=== PATIENT | female | born 1960 | race Caucasian/White ===

== ENCOUNTER 2020-06-25 07:03 | Inpatient (IN) | payer SELFPAY ==
[2020-06-25 07:29] LABS: ABSOLUTE LYMPHOCYTES (AUTO) 0.6 10^3/uL (0.5-4.7); ABSOLUTE MONOCYTES (AUTO) 0.3 10^3/uL (0.1-1.4); ABSOLUTE NEUT (AUTO) 5.9 10^3/uL (1.7-8.2); BASOPHILS % (AUTO) 0.3 % (0-2); EOSINOPHILS % (AUTO) 0.3 % (0-6); HEMATOCRIT 37.9 % (36.0-47.0); HEMOGLOBIN 12.9 g/dL (12.0-15.5); LYMPHOCYTES % (AUTO) 8.4 % (13-45); MEAN CORPUSCULAR HEMOGLOBIN 33.2 pg (27.0-33.4); MEAN CORPUSCULAR HGB CONC 33.9 g/dL (32.0-36.0); MEAN CORPUSCULAR VOLUME 98 fl (80-97); MONOCYTES % (AUTO) 4.1 % (3-13); PLATELET COUNT 120 10^3/uL (150-450); RED BLOOD COUNT 3.88 10^6/uL (3.72-5.28); RED CELL DISTRIBUTION WIDTH 16.4 % (11.5-14.0); SEGMENTED NEUTROPHILS % (AUTO) 86.9 % (42-78); TOTAL CELLS COUNTED % (AUTO) 100 %; WHITE BLOOD COUNT 6.8 10^3/uL (4.0-10.5)
[2020-06-25 07:47] LABS: ALBUMIN 4.2 g/dL (3.5-5.0); ALKALINE PHOSPHATASE 102 U/L (38-126); ANION GAP 12 (5-19); ASPARTATE AMINO TRANSFERASE 85 U/L (14-36); BILIRUBIN,TOTAL 1.3 mg/dL (0.2-1.3); BLOOD UREA NITROGEN 12 mg/dL (7-20); CALCIUM 8.4 mg/dL (8.4-10.2); CARBON DIOXIDE 25 mmol/L (22-30); CHLORIDE 101 mmol/L (98-107); GLUCOSE 168 mg/dL (75-110); POTASSIUM 3.5 mmol/L (3.6-5.0); TOTAL PROTEIN 7.3 g/dL (6.3-8.2)
--- NOTE | 2020-06-25 07:50 | ER Document Report ---
ED General - General Chief Complaint: Probable Seizure Stated Complaint: POSSIBLE SEIZURE Time Seen by Provider: 06/25/20 07:15 - HPI Notes: Chief complaint: Seizure History of present illness: 59-year-old female from [facility] with history of alcoholism who had been admitted to [facility] detox facility yesterday requesting help regarding binge drinking. Patient apparently had 2 brief generalized seizures after presenting an extremely tremulous state. EMS administered Versed 2.5 mg IM and transported her here. She is very sedated at this point and cannot relate any additional history. I have reviewed paperwork sent over from [facility]. They indicate that she has a history of hypertension and is on 10 mg of lisinopril daily and Minipress 1 mg at bedtime. She additionally takes Inderal 10 mg twice daily. She is on multiple medicines for anxiety and depression including Prozac 80 mg daily BuSpar 30 mg twice daily trazodone 50 mg at bedtime and Seroquel 100 mg at bedtime. Patient has a history of old traumatic brain injury. She has a history of PTSD and depression and possibly an eating disorder. - Related Data Allergies/Adverse Reactions: No Known Allergies Allergy (Unverified 06/25/20 07:59) Past Medical History - General Information source: Patient Cannot obtain history due to: Altered mental status - Social History Smoking Status: Unknown if Ever Smoked Family History: Reviewed & Not Pertinent - Past Medical History Cardiac Medical History: Reports: Hx Hypertension Psychiatric Medical History: Reports: Hx Depression, Hx Post Traumatic Stress Disorder Review of Systems - Review of Systems -: Yes ROS unobtainable due to patient's medical condition Physical Exam - Vital signs Vitals: Temp Resp BP Pulse Ox 98.8 F 21 H 134/92 H 93 06/25/20 07:15 06/25/20 07:15 06/25/20 07:15 06/25/20 07:15 - Notes Notes: GENERAL: Slender female of approximately stated age who appears postictal and very sedated from previously administered Versed. SKIN: Good turgor no rashes. HEAD: Normocephalic atraumatic. EYES: PERRLA. EOMI. Conjunctivae and sclerae clear. EARS: CANALS AND TMS CLEAR. NOSE: CLEAR. MOUTH: Moist mucosa. Good dentition. No stridor or edema. No drooling. NECK: Supple. No masses or thyromegaly. No adenopathy. Carotids 2+ without bruits. No JVD. BACK: Symmetrical without tenderness. CHEST: Respirations unlabored. Breath sounds clear and symmetrical. HEART: Regular rhythm. No murmur gallop or rub. ABDOMEN: Soft nontender without masses, organomegaly or rebound. Bowel sounds normally active. No bruits. GENITALIA: Deferred. EXTREMITIES: No edema. No calf tenderness. Cap refill less than 1.5 seconds. Dorsalis pedis and posterior tibial pulses 3+ and symmetrical. NEUROLOGICAL: Patient is very sedated from previously administered Versed. Slurred speech and nonsense syllables. Opens eyes to loud verbal stimuli. Localizes pain. Moves all 4 extremities symmetrically. 1+ ankle clonus bilaterally. Course - Re-evaluation Re-evalutation: 06/25/20 12:08 Patient received multiple doses of Ativan IV. Head CT was negative. She has evidence of a significant UTI on urinalysis. I have ordered some IV Rocephin. She is able to speak with me a little bit more now but remains mildly confused. She still constantly wants to climb out of bed. No further seizure activity since arrival here. Findings have been discussed with on-call hospitalist Dr. Smith who has accepted her for admission to [facility]. - Vital Signs Vital signs: Temp Pulse Resp BP Pulse Ox 98.8 F 21 H 143/98 H 97 06/25/20 07:15 06/25/20 09:54 06/25/20 09:54 06/25/20 09:54 - Laboratory Result Diagrams: 06/25/20 07:07 06/25/20 07:07 Laboratory results interpreted by me: 06/25/20 06/25/20 06/25/20 07:07 07:07 07:07 MCV 98 H RDW 16.4 H Plt Count 120 L Lymph % (Auto) 8.4 L Seg Neutrophils % 86.9 H Potassium 3.5 L Glucose 168 H Magnesium 1.5 L AST 85 H Urine Protein Urine Glucose (UA) Urine Ketones Urine Blood Urine Nitrite Ur Leukocyte Esterase 06/25/20 07:50 MCV RDW Plt Count Lymph % (Auto) Seg Neutrophils % Potassium Glucose Magnesium AST Urine Protein 100 H Urine Glucose (UA) 50 H Urine Ketones TRACE H Urine Blood SMALL H Urine Nitrite POSITIVE H Ur Leukocyte Esterase TRACE H - EKG Interpretation by Me Additional EKG results interpreted by me: 06/25/20 07:53 Twelve-lead EKG from 0711 hrs. reviewed contemporaneously by me demonstrating normal sinus rhythm with a rate of 96. There is prolongation of the QT interval with a QTC of 531 ms. QRS axis is normal at +[address]/T wave changes are present. There is no prior tracing for comparison. Indication for current study: Seizure. Discharge - Discharge Clinical Impression: Chronic alcoholism Alcohol withdrawal seizure Qualifiers: Complication of substance-induced condition: with perceptual disturbance Qualified Code(s): F10.232 - Alcohol dependence with withdrawal with perceptual disturbance Urinary tract infection Qualifiers: Urinary tract infection type: site unspecified Hematuria presence: without hematuria Qualified Code(s): N39.0 - Urinary tract infection, site not specified Condition: Fair Disposition: ADMITTED INPATIENT Admitting Provider: Sarah (Hospitalist) Unit Admitted: [facility]
[2020-06-25 08:07] LABS: ALCOHOL < 10 mg/dL (NONE DETECTED)
[2020-06-25 08:21] LABS: APPEARANCE,URINE CLEAR; BILIRUBIN,URINE NEGATIVE (NEGATIVE); COLOR,URINE YELLOW; GLUCOSE, URINE 50 mg/dL (NEGATIVE); KETONES,URINE TRACE mg/dL (NEGATIVE); LEUKOCYTE ESTERASE,URINE TRACE (NEGATIVE); NITRITE,URINE POSITIVE (NEGATIVE); PROTEIN,URINE 100 mg/dL (NEGATIVE); URINE SPECIFIC GRAVITY 1.011; UROBILINOGEN,URINE NEGATIVE mg/dL (<2.0)
[2020-06-25 08:29] LABS: URINE AMPHETAMINES SCREEN NEGATIVE; URINE BARBITURATES SCREEN NEGATIVE; URINE COCAINE SCREEN NEGATIVE; URINE MARIJUANA (THC) SCREEN NEGATIVE; URINE METHADONE SCREEN NEGATIVE; URINE PHENCYCLIDINE SCREEN NEGATIVE
[2020-06-25 08:31] LABS: URINE BENZODIAZEPINES SCREEN UNCONFIRMED POSITIVE
[2020-06-25] MEDS ORDERED: LORAZEPAM INJ 2 MG/1 ML VIAL IV ONE (08:51)
--- NOTE | 2020-06-25 09:31 | RADIOLOGY REPORT (SQ) ---
EXAM DESCRIPTION: CHEST SINGLE VIEW IMAGES COMPLETED DATE/TIME: 06/25/2020 8:07 am REASON FOR STUDY: ams seizure COMPARISON: None. EXAM PARAMETERS: NUMBER OF VIEWS: One view. TECHNIQUE: Single frontal radiographic view of the chest acquired. RADIATION DOSE: NA LIMITATIONS: None. FINDINGS: LUNGS AND PLEURA: Lungs are hyperinflated. No opacities, masses or pneumothorax. No pleu ral effusion. MEDIASTINUM AND HILAR STRUCTURES: No masses. Contour normal. HEART AND VASCULAR STRUCTURES: Heart normal in size. Normal vasculature. BONES: No acute findings. HARDWARE: None in the chest. OTHER: No other significant finding. IMPRESSION: No acute cardiopulmonary disease. Hyperinflated lungs which can be seen with obstructiv e lung disease. TECHNICAL DOCUMENTATION: JOB ID: [id number] 2010 [employer]- All Rights Reserved Reading location - IP/workstation name: [email or web address]
[2020-06-25] MEDS ORDERED: NORMAL SALINE 1000 ML 1,000 ML with POTASSIUM CHLORIDE 20 MEQ, MAGNESIUM SULFATE 8 MEQ,... IV SCH ×10 (10:00→18:00)
--- NOTE | 2020-06-25 10:15 | RADIOLOGY REPORT (SQ) ---
EXAM DESCRIPTION: CT HEAD WITHOUT IMAGES COMPLETED DATE/TIME: 06/25/2020 8:50 am REASON FOR STUDY: ams seizure. COMPARISON: None. TECHNIQUE: Axial images acquired through the brain without intravenous contrast. Images reviewed wi th bone, brain and subdural windows. Additional sagittal and coronal reconstructions were generated. Images stored on PACS. All CT scanners at this facility use dose modulation, iterative reconstruction, and/or weight based d osing when appropriate to reduce radiation dose to as low as reasonably achievable (ALARA). [facility]: Dose Right [facility]: CareDose [facility]: Dose Right [facility]: Teradose 4D [facility]: Smart [employer] Interactive Video RADIATION DOSE: CT Rad equipment meets quality standard of care and radiation dose reduction techniq ues were employed. CTDIvol: 53.2 mGy. DLP: 964 mGy-cm. mGy. LIMITATIONS: None. FINDINGS: VENTRICLES: Normal size and contour. CEREBRUM: No masses. No hemorrhage. No midline shift. No evidence for acute infarction. Normal gra y/white matter differentiation. No areas of low density in the white matter. CEREBELLUM: No masses. No hemorrhage. No alteration of density. No evidence for acute infarction. EXTRAAXIAL SPACES: No fluid collections. No masses. ORBITS AND GLOBE: No intra- or extraconal masses. Normal contour of globe without masses. CALVARIUM: No fracture. PARANASAL SINUSES: No fluid or mucosal thickening. SOFT TISSUES: No mass or hematoma. OTHER: No other significant finding. IMPRESSION: NORMAL BRAIN CT WITHOUT CONTRAST. EVIDENCE OF ACUTE STROKE: NO. COMMENT: Quality ID # [id number]: Final reports with documentation of one or more dose reduction techniques (e.g., Automated exposure control, adjustment of the mA and/or kV according to patient size, use of iterative reconstruction technique) TECHNICAL DOCUMENTATION: JOB ID: [id number] 2010 [employer]- All Rights Reserved Reading location - IP/workstation name: [email or web address]
--- NOTE | 2020-06-25 10:41 | EKG REPORT ---
SEVERITY:- ABNORMAL ECG - SINUS RHYTHM PROLONGED QT INTERVAL : Confirmed by: Chase Lindsay MD 25-Jun-2020 10:41:05
[2020-06-25] MEDS ORDERED: CEFTRIAXONE INJ 1000 MG VIAL IV ONE (10:59)
[2020-06-25] MEDS ORDERED: LORAZEPAM INJ 2 MG/1 ML VIAL IV PRN ×2 (11:00→13:01)
[2020-06-25] MEDS ORDERED: PROMETHAZINE HCL INJ 25 MG/1 ML VIAL IV PRN (12:57)
[2020-06-25] MEDS ORDERED: ONDANSETRON HCL INJ/PF 4 MG/2 ML SDV IV PRN (12:57)
[2020-06-25] MEDS ORDERED: ALBUTEROL SULFATE 0.083% NEB 2.5 MG/3 ML AMPUL NEB PRN (12:57)
[2020-06-25] MEDS ORDERED: ACETAMINOPHEN 325 MG TABLET PO PRN (12:57)
[2020-06-25] MEDS ORDERED: NORMAL SALINE 1000 ML 1,000 ML with POTASSIUM CHLORIDE 20 MEQ, MAGNESIUM SULFATE 8 MEQ,... IV ONE ×5 (13:02)
[2020-06-25] MEDS ORDERED: METOPROLOL TARTRATE PF/INJ 5 MG/5 ML SDV IV PRN (13:37)
[2020-06-25] MEDS ORDERED: HYDRALAZINE HCL INJ/PF 20 MG/1 ML SDV IV PRN (13:37)
[2020-06-25] MEDS: IPRATROPIUM/ALBUTEROL 0.5-2.5 MG/3 ML AMPUL NEB SCH ×2 (13:59→20:35)
[2020-06-25] MEDS ORDERED: MAGNESIUM SULFATE/D5W 1 GM/100 ML RTUPB IV ONE (14:00)
--- NOTE | 2020-06-25 14:18 | PSYCHOLOGICAL NOTE ---
Psych Note - Psych Note Date seen by psych provider: 06/25/20 Time seen by psych provider: 11:30 Psych Note: Reason for Consult: Detox/Seizure Patient arrived to [facility] ED from [facility] after having a seizure and connection to detoxing from alcohol. Patient reports that she has not drank in 2 days. Patient currently is having some difficulty engaging as she did receive Ativan approximately 2 hours prior. At this time the patient discloses she is not interested in returning to [place] at this time. Patient is semi-alert but is orientated to person place and circumstance. Patient is very groggy and has difficulty focusing but does answer appropriately. Patient denies suicidal and homicidal ideations. Cognitive functioning is currently slowed because of needing Ativan after having a seizure from withdrawal from alcohol. Impression\plan: Patient is cleared from acute psychiatric services. Patient was seen at [facility] specifically for detox from alcohol. Patient denied suicidal and homicidal ideation; she does not meet IVC criteria per [place] GS 122C. Patient currently is disclosing that she is not interested in returning to [place] however patient is having some difficulty engaging due to receiving Ativan. Patient has been medically admitted. If patient would like further resources to continue her path and sobriety please reconsult. Dr. Peña was consulted in the care management of this patient; attending physicians in agreement with recommendations and disposition.
[2020-06-25] MEDS: DIAZEPAM INJ 10 MG/2 ML DISP.SYRIN IV SCH ×2 (14:39→21:53)
[2020-06-25] MEDS: DEXTROSE 5%-NORMAL SALINE 1,000 ML IV PRN (14:49)
--- NOTE | 2020-06-25 15:48 | PDOC H&P ---
History of Present Illness Admission Date/PCP: 06/25/20 12:25 History of Present Illness: DENISE WHITING is a 59 year old female past medical history of TBI, seizure disorder, depression, anxiety, EtOH abuse, binge drinking from [facility], who was transferred to [facility] for alcohol detox, at the center she was noted to have a seizure and was brought to ED. On my encounter patient is a little groggy as she has received benzodiazepines, she is easily arousable and alert and oriented but thinks she is in [place], denies any auditory or visual hallucination or any formication, last alcohol intake was 2 days ago, she dysuria, urgency, denies any fever, chills, nausea, vomiting, diarrhea, constipation. In the ED she was evaluated by Dr. medeiros per psychiatrist and she is cleared from acute psychiatric services. CT head was negative for any acute abnormalities, chest x-ray showed hyperinflation possibly obstructive lung disease, CBC WNL and CMP she was noted to be mildly hypokalemic and hypomagnesemic, urine was positive for leukocyte esterase, and toxicology positive for benzodiazepines. Alcohol less than 10. Hospitalist was consulted for admission. Past Medical History Cardiac Medical History: Reports: Hypertension Psychiatric Medical History: Reports: Depression, Post Traumatic Stress Disorder Social History Smoking Status: Unknown if Ever Smoked Family History Family History: Reviewed & Not Pertinent Parental Family History Reviewed: Yes Children Family History Reviewed: Yes Sibling(s) Family History Reviewed.: Yes Medication/Allergy Home Medications: Buspirone HCl [Buspar 10 mg Tablet] 30 mg PO BID 06/25/20 Fluoxetine HCl [Prozac] 80 mg PO DAILY 06/25/20 Lisinopril [Prinivil 10 mg Tablet] 10 mg PO DAILY 06/25/20 Prazosin HCl [Minipress] 1 mg PO QHS 06/25/20 Propranolol HCl [Inderal 10 mg Tablet] 10 mg PO BID 06/25/20 Quetiapine Fumarate [Seroquel 100 mg Tablet] 100 mg PO QHS 06/25/20 Trazodone HCl [Desyrel 50 mg Tablet] 50 mg PO QHS 06/25/20 Allergies/Adverse Reactions: No Known Allergies Allergy (Unverified 06/25/20 07:59) Review of Systems Review of Systems: as per hpi Physical Exam Vital Signs: Temp Pulse Resp BP Pulse Ox 98.8 F 19 120/87 H 97 06/25/20 07:15 06/25/20 15:15 06/25/20 15:15 06/25/20 15:15 Intake & Output 06/24/20 06/25/20 06/26/20 06:59 06:59 06:59 Output Total 300 Balance -300 Weight 65.771 kg General appearance: PRESENT: no acute distress, well-developed, well-nourished, other - Somnolent Respiratory exam: PRESENT: clear to auscultation zulma. ABSENT: rales, rhonchi, wheezes Cardiovascular exam: PRESENT: RRR. ABSENT: diastolic murmur, rubs, systolic murmur GI/Abdominal exam: PRESENT: normal bowel sounds, soft. ABSENT: distended, guarding, mass, organolmegaly, rebound, tenderness Neurological exam: PRESENT: alert, awake, oriented to person, CN II-XII grossly intact. ABSENT: motor sensory deficit Results Laboratory Results: 06/25/20 07:07 06/25/20 07:07 06/25/20 06/25/20 06/25/20 07:07 07:07 07:07 WBC 6.8 RBC 3.88 Hgb 12.9 Hct 37.9 MCV 98 H MCH 33.2 MCHC 33.9 RDW 16.4 H Plt Count 120 L Seg Neutrophils % 86.9 H Sodium 137.9 Potassium 3.5 L Chloride 101 Carbon Dioxide 25 Anion Gap 12 BUN 12 Creatinine 0.73 Est GFR ( Amer) > 60 Glucose 168 H Calcium 8.4 Magnesium 1.5 L Total Bilirubin 1.3 AST 85 H Alkaline Phosphatase 102 Total Protein 7.3 Albumin 4.2 Urine Color Urine Appearance Urine pH Ur Specific [place] Urine Protein Urine Glucose (UA) Urine Ketones Urine Blood Urine Nitrite Ur Leukocyte Esterase Urine WBC (Auto) Urine RBC (Auto) 06/25/20 06/25/20 07:50 14:16 WBC RBC Hgb Hct MCV MCH MCHC RDW Plt Count Seg Neutrophils % Sodium Potassium Chloride Carbon Dioxide Anion Gap BUN Creatinine Est GFR ( Amer) Glucose Calcium Magnesium 1.9 Total Bilirubin AST Alkaline Phosphatase Total Protein Albumin Urine Color YELLOW Urine Appearance CLEAR Urine pH 6.0 Ur Specific [place] 1.011 Urine Protein 100 H Urine Glucose (UA) 50 H Urine Ketones TRACE H Urine Blood SMALL H Urine Nitrite POSITIVE H Ur Leukocyte Esterase TRACE H Urine WBC (Auto) 9 Urine RBC (Auto) 2 Impressions: Chest X-Ray 06/25/20 07:51 IMPRESSION: No acute cardiopulmonary disease. Hyperinflated lungs which can be seen with obstructive lung disease. Head CT 06/25/20 07:51 IMPRESSION: NORMAL BRAIN CT WITHOUT CONTRAST. EVIDENCE OF ACUTE STROKE: NO. Assessment and Plan - Diagnosis (1) Alcohol withdrawal seizure Qualifiers: Complication of substance-induced condition: with perceptual disturbance Qualified Code(s): F10.232 - Alcohol dependence with withdrawal with perceptual disturbance Is this a current diagnosis for this admission?: Yes Plan: Last alcohol intake 2 days ago. Endorses history of TBI, denies any history of seizure disorder. Admitted to IMCU, telemetry, benzodiazepines, thiamine, folic acid, fall seizure and aspiration precautions, monitor vitals status electrolytes and replete as needed. (2) Hypertension Is this a current diagnosis for this admission?: Yes Plan: Appears euvolemic. Noted to be hypertensive. Resume home meds. Adjust meds as needed. (3) ETOH abuse Is this a current diagnosis for this admission?: Yes Plan: As per #1. (4) Depression Is this a current diagnosis for this admission?: Yes Plan: Denies any suicidal or homicidal ideation. Resume home meds. Outpatient PCP and psychiatry follow-up. (5) Urinary tract infection Qualifiers: Urinary tract infection type: site unspecified Hematuria presence: without hematuria Qualified Code(s): N39.0 - Urinary tract infection, site not specified Is this a current diagnosis for this admission?: Yes Plan: Likely due to gram-negative rods including E. coli. Empiric IV antibiotics. Follow-up urine culture. - Time Time Spent with patient: 35 or more minutes Medications reviewed and adjusted accordingly: Yes Anticipated Discharge Disposition: Psych Hospital/Unit Anticipated Discharge Timeframe: within 72 hours
[2020-06-25] MEDS: BUSPIRONE HCL 10 MG TABLET PO SCH (18:24)
[2020-06-25] MEDS: PROPRANOLOL HCL 10 MG TABLET PO SCH (18:24)
[2020-06-25] MEDS: TRAZODONE HCL 50 MG TABLET PO SCH (21:52)
[2020-06-25] MEDS: TEMAZEPAM 7.5 MG CAPSULE PO SCH (21:52)
[2020-06-25] MEDS: FAMOTIDINE 20 MG TABLET PO SCH (21:53)
[2020-06-25] MEDS ORDERED: QUETIAPINE FUMARATE 100 MG TABLET PO SCH (22:00)
[2020-06-25] MEDS ORDERED: (PENDING PHARMACY ID) (Prazosin Hcl [Minipress] 1 MG) PO SCH (22:00)
[2020-06-26] MEDS: DEXTROSE 5%-NORMAL SALINE 1,000 ML IV PRN ×2 (03:58→17:18)
[2020-06-26] MEDS: DIAZEPAM INJ 10 MG/2 ML DISP.SYRIN IV SCH ×3 (05:59→21:55)
[2020-06-26 06:30] LABS: ABSOLUTE EOSINOPHILS # (AUTO) 0.1 10^3/uL (0.0-0.6); ABSOLUTE LYMPHOCYTES (AUTO) 1.3 10^3/uL (0.5-4.7); ABSOLUTE MONOCYTES (AUTO) 0.4 10^3/uL (0.1-1.4); ABSOLUTE NEUT (AUTO) 4.5 10^3/uL (1.7-8.2); BASOPHILS % (AUTO) 0.4 % (0-2); EOSINOPHILS % (AUTO) 1.5 % (0-6); HEMATOCRIT 39.9 % (36.0-47.0); HEMOGLOBIN 13.7 g/dL (12.0-15.5); LYMPHOCYTES % (AUTO) 20.8 % (13-45); MEAN CORPUSCULAR HEMOGLOBIN 32.9 pg (27.0-33.4); MEAN CORPUSCULAR HGB CONC 34.3 g/dL (32.0-36.0); MEAN CORPUSCULAR VOLUME 96 fl (80-97); MONOCYTES % (AUTO) 6.6 % (3-13); PLATELET COUNT 115 10^3/uL (150-450); RED BLOOD COUNT 4.15 10^6/uL (3.72-5.28); SEGMENTED NEUTROPHILS % (AUTO) 70.7 % (42-78); TOTAL CELLS COUNTED % (AUTO) 100 %; WHITE BLOOD COUNT 6.4 10^3/uL (4.0-10.5)
[2020-06-26 07:31] LABS: ANION GAP 8 (5-19); BLOOD UREA NITROGEN 10 mg/dL (7-20); CALCIUM 8.3 mg/dL (8.4-10.2); CARBON DIOXIDE 24 mmol/L (22-30); CHLORIDE 103 mmol/L (98-107); GLUCOSE 108 mg/dL (75-110); PHOSPHORUS 2.7 mg/dL (2.5-4.5); POTASSIUM 3.1 mmol/L (3.6-5.0)
[2020-06-26] MEDS: IPRATROPIUM/ALBUTEROL 0.5-2.5 MG/3 ML AMPUL NEB SCH ×3 (08:40→20:55)
[2020-06-26] MEDS ORDERED: POTASSIUM CHLORIDE 10 MEQ TABLET.ER PO ONE (09:30)
[2020-06-26] MEDS: FOLIC ACID 1 MG TABLET PO SCH (09:35)
[2020-06-26] MEDS: FAMOTIDINE 20 MG TABLET PO SCH ×2 (09:35→21:55)
[2020-06-26] MEDS: FLUOXETINE HCL 20 MG CAPSULE PO SCH (09:35)
[2020-06-26] MEDS: THIAMINE HCL 100 MG TABLET PO SCH (09:35)
[2020-06-26] MEDS: PROPRANOLOL HCL 10 MG TABLET PO SCH ×2 (09:35→17:18)
[2020-06-26] MEDS: BUSPIRONE HCL 10 MG TABLET PO SCH ×2 (09:36→17:18)
[2020-06-26] MEDS: CEFTRIAXONE 1 GM/D5W RTU 1 GM/50 ML RTUPB IV SCH (09:36)
[2020-06-26] MEDS: LISINOPRIL 10 MG TABLET PO SCH (09:36)
[2020-06-26] MEDS: ENOXAPARIN SODIUM INJ 40 MG/0.4 ML DISP.SYRIN SUBCUT SCH (09:37)
[2020-06-26] MEDS: MULTIVITAMIN (INFANT) W-IRON DROPS 50 ML PO SCH (09:39)
[2020-06-26] MEDS ORDERED: DOCUSATE SODIUM 100 MG/10 ML UDC PO SCH (10:00)
--- NOTE | 2020-06-26 10:10 | PDOC PROGRESS REPORT ---
Subjective Progress Note for:: 06/26/20 Subjective:: DENISE WHITING is a 59 year old female past medical history of TBI, seizure disorder, depression, anxiety, EtOH abuse, binge drinking from [facility], who was transferred to [facility] for alcohol detox, at the center she was noted to have a seizure and was brought to ED. On my encounter patient is a little groggy as she has received benzodiazepines, she is easily arousable and alert and oriented but thinks she is in [place], denies any auditory or visual hallucination or any formication, last alcohol intake was 2 days ago, she dysuria, urgency, denies any fever, chills, nausea, vomiting, diarrhea, constipation. In the ED she was evaluated by Dr. medeiros per psychiatrist and she is cleared from acute psychiatric services. CT head was negative for any acute abnormalities, chest x-ray showed hyperinflation possibly obstructive lung disease, CBC WNL and CMP she was noted to be mildly hypokalemic and hypomagnesemic, urine was positive for leukocyte esterase, and toxicology positive for benzodiazepines. Alcohol less than 10. Hospitalist was consulted for admission. 06/26/2020. No acute events overnight. Patient somnolent but easily arousable, cooperative with physical examination, alert and oriented to person and place, denies any fever, chills, nausea, vomiting. Has not had any seizures since admission. Reason For Visit: SEIZURE,ALCOHOL WITHDRAWAL Physical Exam Vital Signs: Temp Pulse Resp BP Pulse Ox 97.8 F 68 16 104/65 97 06/26/20 07:41 06/26/20 08:40 06/26/20 08:40 06/26/20 07:41 06/26/20 08:40 Intake & Output 06/25/20 06/26/20 06/27/20 06:59 06:59 06:59 Intake Total 2298 Output Total 1075 Balance 1223 Weight 70 kg General appearance: PRESENT: no acute distress, well-developed, well-nourished Head exam: PRESENT: atraumatic, normocephalic Respiratory exam: PRESENT: clear to auscultation zulma. ABSENT: rales, rhonchi, wheezes Cardiovascular exam: PRESENT: RRR. ABSENT: diastolic murmur, rubs, systolic murmur GI/Abdominal exam: PRESENT: normal bowel sounds, soft. ABSENT: distended, guarding, mass, organolmegaly, rebound, tenderness Neurological exam: PRESENT: alert - Sleeping but easily arousable, awake - Sle eping but easily arousable, oriented to person, oriented to time, oriented to situation, CN II-XII grossly intact. ABSENT: motor sensory deficit Results Laboratory Results: 06/26/20 05:53 06/26/20 05:53 06/25/20 06/26/20 06/26/20 14:16 05:53 05:53 WBC 6.4 RBC 4.15 Hgb 13.7 Hct 39.9 MCV 96 MCH 32.9 MCHC 34.3 RDW 16.0 H Plt Count 115 L Seg Neutrophils % 70.7 Sodium 135.4 L Potassium 3.1 L Chloride 103 Carbon Dioxide 24 Anion Gap 8 BUN 10 Creatinine 0.56 Est GFR ( Amer) > 60 Glucose 108 Calcium 8.3 L Phosphorus 2.7 Magnesium 1.9 Impressions: Chest X-Ray 06/25/20 07:51 IMPRESSION: No acute cardiopulmonary disease. Hyperinflated lungs which can be seen with obstructive lung disease. Head CT 06/25/20 07:51 IMPRESSION: NORMAL BRAIN CT WITHOUT CONTRAST. EVIDENCE OF ACUTE STROKE: NO. Assessment and Plan - Diagnosis (1) Alcohol withdrawal seizure Qualifiers: Complication of substance-induced condition: with perceptual disturbance Qualified Code(s): F10.232 - Alcohol dependence with withdrawal with perceptual disturbance Is this a current diagnosis for this admission?: Yes Plan: Last alcohol intake 2 days ago. Endorses history of TBI, denies any history of seizure disorder. Has not had any seizures since admission. Continue telemetry, benzodiazepines, thiamine, folic acid, fall seizure and aspiration precautions, monitor vitals status electrolytes and replete as ne eded. (2) Hypertension Is this a current diagnosis for this admission?: Yes Plan: Appears euvolemic. Noted to be hypertensive. Resume home meds. Adjust meds as needed. (3) ETOH abuse Is this a current diagnosis for this admission?: Yes Plan: As per #1. (4) Depression Is this a current diagnosis for this admission?: Yes Plan: Denies any suicidal or homicidal ideation. Resume home meds. Outpatient PCP and psychiatry follow-up. (5) Urinary tract infection Qualifiers: Urinary tract infection type: site unspecified Hematuria presence: without hematuria Qualified Code(s): N39.0 - Urinary tract infection, site not specified Is this a current diagnosis for this admission?: Yes Plan: Likely due to gram-negative rods including E. coli. Empiric IV antibiotics. Follow-up urine culture. - Time Time Spent with patient: 15-24 minutes Medications reviewed and adjusted accordingly: Yes Anticipated Discharge Disposition: Tertiary Anticipated Discharge Timeframe: within 72 hours
--- NOTE | 2020-06-26 15:01 | EKG REPORT ---
SEVERITY:- ABNORMAL ECG - SINUS RHYTHM PROLONGED QT INTERVAL LA ABNORMALITY : Confirmed by: Chase Lindsay MD 26-Jun-2020 15:00:03
[2020-06-26] MEDS: TRAZODONE HCL 50 MG TABLET PO SCH (21:55)
[2020-06-26] MEDS: TEMAZEPAM 7.5 MG CAPSULE PO SCH (21:55)
[2020-06-27] MEDS: DEXTROSE 5%-NORMAL SALINE 1,000 ML IV PRN (05:42)
[2020-06-27 07:20] LABS: ABSOLUTE EOSINOPHILS # (AUTO) 0.1 10^3/uL (0.0-0.6); ABSOLUTE LYMPHOCYTES (AUTO) 1.7 10^3/uL (0.5-4.7); ABSOLUTE MONOCYTES (AUTO) 0.4 10^3/uL (0.1-1.4); ABSOLUTE NEUT (AUTO) 2.2 10^3/uL (1.7-8.2); BASOPHILS % (AUTO) 0.5 % (0-2); EOSINOPHILS % (AUTO) 2.5 % (0-6); HEMATOCRIT 36.9 % (36.0-47.0); HEMOGLOBIN 12.4 g/dL (12.0-15.5); LYMPHOCYTES % (AUTO) 38.4 % (13-45); MEAN CORPUSCULAR HEMOGLOBIN 33.1 pg (27.0-33.4); MEAN CORPUSCULAR HGB CONC 33.6 g/dL (32.0-36.0); MEAN CORPUSCULAR VOLUME 98 fl (80-97); MONOCYTES % (AUTO) 9.6 % (3-13); PLATELET COUNT 111 10^3/uL (150-450); RED BLOOD COUNT 3.75 10^6/uL (3.72-5.28); RED CELL DISTRIBUTION WIDTH 16.6 % (11.5-14.0); TOTAL CELLS COUNTED % (AUTO) 100 %; WHITE BLOOD COUNT 4.5 10^3/uL (4.0-10.5)
[2020-06-27 07:44] LABS: ALKALINE PHOSPHATASE 64 U/L (38-126); ASPARTATE AMINO TRANSFERASE 44 U/L (14-36); BILIRUBIN,TOTAL 0.9 mg/dL (0.2-1.3); BLOOD UREA NITROGEN 8 mg/dL (7-20); CALCIUM 8.2 mg/dL (8.4-10.2); CARBON DIOXIDE 23 mmol/L (22-30); CHLORIDE 110 mmol/L (98-107); GLUCOSE 103 mg/dL (75-110); TOTAL PROTEIN 5.9 g/dL (6.3-8.2)
[2020-06-27 07:45] LABS: ANION GAP 4 (5-19); POTASSIUM 3.5 mmol/L (3.6-5.0)
[2020-06-27] MEDS: IPRATROPIUM/ALBUTEROL 0.5-2.5 MG/3 ML AMPUL NEB SCH ×2 (09:06→14:02)
[2020-06-27] MEDS: DIAZEPAM INJ 10 MG/2 ML DISP.SYRIN IV SCH (09:41)
[2020-06-27] MEDS: FLUOXETINE HCL 20 MG CAPSULE PO SCH (09:42)
[2020-06-27] MEDS: PROPRANOLOL HCL 10 MG TABLET PO SCH (09:42)
[2020-06-27] MEDS: FAMOTIDINE 20 MG TABLET PO SCH (09:42)
[2020-06-27] MEDS: LISINOPRIL 10 MG TABLET PO SCH (09:42)
[2020-06-27] MEDS: MULTIVITAMIN (INFANT) W-IRON DROPS 50 ML PO SCH (09:42)
[2020-06-27] MEDS: ENOXAPARIN SODIUM INJ 40 MG/0.4 ML DISP.SYRIN SUBCUT SCH (09:43)
[2020-06-27] MEDS: THIAMINE HCL 100 MG TABLET PO SCH (09:43)
[2020-06-27] MEDS: FOLIC ACID 1 MG TABLET PO SCH (09:43)
[2020-06-27] MEDS: BUSPIRONE HCL 10 MG TABLET PO SCH (09:43)
[2020-06-27] MEDS: CEFTRIAXONE 1 GM/D5W RTU 1 GM/50 ML RTUPB IV SCH (09:44)
[2020-06-27] MEDS ORDERED: POTASSIUM CHLORIDE 10 MEQ TABLET.ER PO ONE (10:00)
[2020-06-27] MEDS ORDERED: DOCUSATE SODIUM 100 MG CAPSULE PO SCH (10:00)
[2020-06-27 12:24] VITALS: BP 127/86
--- NOTE | 2020-06-27 13:02 | PDOC PROGRESS REPORT ---
Subjective Progress Note for:: 06/27/20 Subjective:: DENISE WHITING is a 59 year old female past medical history of TBI, seizure disorder, depression, anxiety, EtOH abuse, binge drinking from [facility], who was transferred to [facility] for alcohol detox, at the center she was noted to have a seizure and was brought to ED. On my encounter patient is a little groggy as she has received benzodiazepines, she is easily arousable and alert and oriented but thinks she is in [place], denies any auditory or visual hallucination or any formication, last alcohol intake was 2 days ago, she dysuria, urgency, denies any fever, chills, nausea, vomiting, diarrhea, constipation. In the ED she was evaluated by Dr. medeiros per psychiatrist and she is cleared from acute psychiatric services. CT head was negative for any acute abnormalities, chest x-ray showed hyperinflation possibly obstructive lung disease, CBC WNL and CMP she was noted to be mildly hypokalemic and hypomagnesemic, urine was positive for leukocyte esterase, and toxicology positive for benzodiazepines. Alcohol less than 10. Hospitalist was consulted for admission. 06/26/2020. No acute events overnight. Patient somnolent but easily arousable, cooperative with physical examination, alert and oriented to person and place, denies any fever, chills, nausea, vomiting. Has not had any seizures since admission. 06/27/2020. No acute events overnight. No seizures, alert and oriented in no apparent distress. Denies any fever, chills, nausea, vomiting, diarrhea, constipation or any urinary symptoms. Reason For Visit: SEIZURE,ALCOHOL WITHDRAWAL Physical Exam Vital Signs: Temp Pulse Resp BP Pulse Ox 98.2 F 65 18 127/86 H 100 06/27/20 11:53 06/27/20 11:53 06/27/20 11:53 06/27/20 11:53 06/27/20 11:53 Intake & Output 06/26/20 06/27/20 06/28/20 06:59 06:59 06:59 Intake Total 2298 3104 410 Output Total 1075 750 500 Balance 1223 2354 -90 Weight 70 kg 70.2 kg General appearance: PRESENT: no acute distress, well-developed, well-nourished Head exam: PRESENT: atraumatic, normocephalic Respiratory exam: PRESENT: clear to auscultation zulma. ABSENT: rales, rhonchi, wheezes Cardiovascular exam: PRESENT: RRR. ABSENT: diastolic murmur, rubs, systolic murmur GI/Abdominal exam: PRESENT: normal bowel sounds, soft. ABSENT: distended, guarding, mass, organolmegaly, rebound, tenderness Extremities exam: PRESENT: full ROM. ABSENT: calf tenderness, clubbing, pedal edema Neurological exam: PRESENT: alert, awake, oriented to person, oriented to place, oriented to time, oriented to situation, CN II-XII grossly intact. ABSENT: motor sensory deficit Results Laboratory Results: 06/27/20 06:20 06/27/20 06:20 06/27/20 06/27/20 06:20 06:20 WBC 4.5 RBC 3.75 Hgb 12.4 Hct 36.9 MCV 98 H MCH 33.1 MCHC 33.6 RDW 16.6 H Plt Count 111 L Seg Neutrophils % 49.0 Sodium 137.3 Potassium 3.5 L Chloride 110 H Carbon Dioxide 23 Anion Gap 4 L BUN 8 Creatinine 0.57 Est GFR ( Amer) > 60 Glucose 103 Calcium 8.2 L Magnesium 2.0 Total Bilirubin 0.9 AST 44 H Alkaline Phosphatase 64 Total Protein 5.9 L Albumin 3.0 L Impressions: Chest X-Ray 06/25/20 07:51 IMPRESSION: No acute cardiopulmonary disease. Hyperinflated lungs which can be seen with obstructive lung disease. Head CT 06/25/20 07:51 IMPRESSION: NORMAL BRAIN CT WITHOUT CONTRAST. EVIDENCE OF ACUTE STROKE: NO. Assessment and Plan - Diagnosis (1) Alcohol withdrawal seizure Qualifiers: Complication of substance-induced condition: with perceptual disturbance Qualified Code(s): F10.232 - Alcohol dependence with withdrawal with perceptual disturbance Is this a current diagnosis for this admission?: Yes Plan: Alert and oriented x3. Has not had any seizures since admission. Last alcohol intake 2 days ago. Endorses history of TBI, denies any history of seizure disorder. Continue telemetry, benzodiazepines, thiamine, folic acid, fall seizure and aspiration precautions, monitor vitals status electrolytes and replete as needed. (2) Hypertension Is this a current diagnosis for this admission?: Yes Plan: Appears euvolemic. Normotensive. Resume home meds. Adjust meds as needed. (3) ETOH abuse Is this a current diagnosis for this admission?: Yes Plan: As per #1. (4) Depression Is this a current diagnosis for this admission?: Yes Plan: Denies any suicidal or homicidal ideation. Resume home meds. Outpatient PCP and psychiatry follow-up. (5) Urinary tract infection Qualifiers: Urinary tract infection type: site unspecified Hematuria presence: without hematuria Qualified Code(s): N39.0 - Urinary tract infection, site not specified Is this a current diagnosis for this admission?: Yes Plan: Likely due to gram-negative rods including E. coli. Empiric IV antibiotics. Follow-up urine culture. - Time Time Spent with patient: 25-34 minutes Anticipated Discharge Disposition: Tertiary Anticipated Discharge Timeframe: within 24 hours
--- NOTE | 2020-07-13 05:30 | Left Against Medical Advice ---
Against Medical Advice Admission Date/Time: 06/25/20 12:25 Primary Care Provider: Date of Patient Emigration: 06/25/20 - Diagnosis: (1) Alcohol withdrawal seizure Is this a current diagnosis for this admission?: Yes (2) Hypertension Is this a current diagnosis for this admission?: Yes (3) ETOH abuse Is this a current diagnosis for this admission?: Yes (4) Depression Is this a current diagnosis for this admission?: Yes (5) Urinary tract infection Is this a current diagnosis for this admission?: Yes - Summary: Summary: Please see Admission and Progress Notes as well. DENISE WHITING is a 59 F, who LEFT AGAINST MEDICAL ADVICE. Unfortunately patient eloped. The Patient was admitted on 06/25/20 12:25. (1) Alcohol withdrawal seizure Alert and oriented x3. Has not had any seizures since admission. Last alcohol intake 2 days ago. Endorses history of TBI, denies any history of seizure disorder. Continue telemetry, benzodiazepines, thiamine, folic acid, fall seizure and aspiration precautions, monitor vitals status electrolytes and replete as needed. (2) Hypertension Appears euvolemic. Normotensive. Resume home meds. Adjust meds as needed. (3) ETOH abuse As per #1. (4) Depression Denies any suicidal or homicidal ideation. Resume home meds. Outpatient PCP and psychiatry follow-up. (5) Urinary tract infection Likely due to gram-negative rods including E. coli. Empiric IV antibiotics. Follow-up urine culture.
== END 2020-06-27 18:32 | disposition left against medical advice (07) | DRG 101 ==
LOC: ER 07:03 → EH 12:25 → 3S 16:16
PROVIDERS: ADMIT Internal Medicine; ATTEND Internal Medicine
DX: G40.509 Epileptic seizures related to external causes, not intractable, without status epilepticus (principal); F10.232 Alcohol dependence with withdrawal with perceptual disturbance; N39.0 Urinary tract infection, site not specified; I10 Essential (primary) hypertension; F41.9 Anxiety disorder, unspecified; F32.9 Major depressive disorder, single episode, unspecified; F43.10 Post-traumatic stress disorder, unspecified; E87.6 Hypokalemia; E83.42 Hypomagnesemia; Z87.820 Personal history of traumatic brain injury; Z79.899 Other long term (current) drug therapy
CPT/HCPCS: 36415; 51701; 51702; 70450; 71045; 80048; 80053; 80307; 81001; 83735; 84100; 85025; 87040; 93005; 93010; 94640; 96361; 96365; 96375; 99285; J0360; J0696; J1650; J2060; J3360; J3411; J3475; J3480; J3490; J7030; J7042